=== PATIENT | male | born 1960 | race Caucasian/White ===

== ENCOUNTER 2020-04-08 16:02 | Inpatient (IN) ==
[2020-04-08] MEDS ORDERED: Ondansetron 4 MG/2 ML VIAL IVP PRN (20:30)
[2020-04-08] MEDS ORDERED: Naloxone 0.4 MG/ML INJ IVP PRN (20:30)
[2020-04-08] MEDS ORDERED: Acetaminophen 325 MG TABLET PO PRN (20:57)
[2020-04-08] MEDS: ALPRAZolam 0.5 MG TABLET PO PRN (21:48)
[2020-04-08] MEDS: Nicotine 21 MG PATCH.TD24 TD SCH (21:48)
[2020-04-08] MEDS: Budesonide/Formoterol 160/4.5 1 PUFF INH IH SCH (22:42)
[2020-04-09] MEDS ORDERED: hydrOXYzine pamoate 25 MG CAPSULE PO PRN (03:24)
[2020-04-09 04:12] LABS: Basophils % 0.2 %; Eosinophils % 0.2 %; Hematocrit 43.4 % (37.5-50.1); Hemoglobin 13.9 g/dL (12.9-16.9); Immature Granulocytes % 0.6 % (0-4); Lymphocytes # 4.3 K/mcL (0.6-4.6); Lymphocytes % 22.2 %; Mean Corpuscular Volume 93.7 fL (83.0-100.0); Mean Platelet Volume 10.7 fL (9.4-12.4); Monocytes # 1.4 K/mcL (0.0-1.3); Monocytes % 7.4 %; Platelet Count 283 K/mcL (140-400); Red Blood Count 4.63 M/mcL (4.19-5.50); Red Cell Distribution Width 13.8 % (11.5-14.5); Segmented Neutrophils % 69.4 %; White Blood Count 19.4 K/mcL (4.3-11.1)
[2020-04-09 04:15] LABS: Neutrophils # 13.5 K/mcL (1.6-8.9)
[2020-04-09 04:18] LABS: INR 1.1; Prothrombin Time 12.7 Seconds (9.4-12.1)
[2020-04-09 04:28] LABS: BUN/Creatinine Ratio 29 (6-26); Blood Urea Nitrogen 37 mg/dL (6-20); Calcium 8.7 mg/dL (8.6-10.3); Carbon Dioxide 27 mEq/L (23-29); Chloride 102 mEq/L (98-107); Glucose 99 mg/dL (70-105); Magnesium 1.9 mg/dL (1.6-2.6); Osmolality,Calculated 293 (280-300); Potassium 4.1 mEq/L (3.5-5.1); Sodium 137 mEq/L (136-145); eGFR For African Americans > 60 (> 60); eGFR For Non-African Americans 59 (> 60)
[2020-04-09 04:36] LABS: Reactive Lymphocytes Present (Not Present)
[2020-04-09 04:37] LABS: Platelet Estimate Normal (Normal)
[2020-04-09] MEDS: *HR* Enoxaparin 40 MG/0.4 ML SYRINGE SQ SCH (04:38)
[2020-04-09 05:10] LABS: Creatinine,Urine 90 mg/dL
[2020-04-09] MEDS: Budesonide/Formoterol 160/4.5 1 PUFF INH IH SCH ×2 (07:41→19:44)
[2020-04-09] MEDS: predniSONE 20 MG TABLET PO SCH (08:28)
[2020-04-09] MEDS: Aspirin Enteric Coated 81 MG Tablet PO SCH (08:28)
[2020-04-09] MEDS: Venlafaxine XR (24 HR) 37.5 MG CAP.ER.24H PO SCH (08:28)
[2020-04-09] MEDS: lisinopriL 20 MG TABLET PO SCH (08:28)
[2020-04-09] MEDS: Nitroglycerin 0.4 MG TAB.SUBL SL PRN ×2 (12:10→12:47)
[2020-04-09] MEDS: Furosemide 40 MG/4 ML VIAL IVP SCH ×2 (12:11→17:39)
[2020-04-09] MEDS: Nicotine 21 MG PATCH.TD24 TD SCH (20:37)
[2020-04-10] MEDS: ALPRAZolam 0.5 MG TABLET PO PRN ×2 (00:24→12:24)
[2020-04-10 02:10] LABS: Hematocrit 46.7 % (37.5-50.1); Hemoglobin 15.3 g/dL (12.9-16.9); Mean Corpuscular HGB Conc 32.8 g/dL (31.6-35.5); Mean Corpuscular Hemoglobin 29.8 pg (28.0-33.3); Mean Corpuscular Volume 90.9 fL (83.0-100.0); Mean Platelet Volume 11.1 fL (9.4-12.4); Platelet Count 309 K/mcL (140-400); Red Blood Count 5.14 M/mcL (4.19-5.50); Red Cell Distribution Width 13.2 % (11.5-14.5); White Blood Count 15.1 K/mcL (4.3-11.1)
[2020-04-10 02:30] LABS: BUN/Creatinine Ratio 33 (6-26); Blood Urea Nitrogen 39 mg/dL (6-20); Carbon Dioxide 32 mEq/L (23-29); Chloride 97 mEq/L (98-107); Glucose 127 mg/dL (70-105); Magnesium 1.8 mg/dL (1.6-2.6); Osmolality,Calculated 297 (280-300); Potassium 3.7 mEq/L (3.5-5.1); Sodium 138 mEq/L (136-145); eGFR For African Americans > 60 (> 60); eGFR For Non-African Americans > 60 (> 60)
[2020-04-10] MEDS: *HR* Enoxaparin 40 MG/0.4 ML SYRINGE SQ SCH (05:26)
[2020-04-10] MEDS: Budesonide/Formoterol 160/4.5 1 PUFF INH IH SCH ×2 (07:46→20:38)
[2020-04-10] MEDS ORDERED: Metoprolol XL (24 HR) Succ 50 MG TAB.ER.24H PO SCH (09:00)
[2020-04-10] MEDS: lisinopriL 20 MG TABLET PO SCH (09:45)
[2020-04-10] MEDS: Furosemide 40 MG/4 ML VIAL IVP SCH ×2 (09:45→17:44)
[2020-04-10] MEDS: Aspirin Enteric Coated 81 MG Tablet PO SCH (09:45)
[2020-04-10] MEDS: Venlafaxine XR (24 HR) 37.5 MG CAP.ER.24H PO SCH (09:45)
[2020-04-10] MEDS: predniSONE 20 MG TABLET PO SCH (09:45)
[2020-04-10] MEDS: carvediloL 6.25 MG TABLET PO SCH ×2 (09:48→17:43)
[2020-04-10] MEDS: Nitroglycerin 0.4 MG TAB.SUBL SL PRN (09:49)
[2020-04-10] MEDS: Isosorbide MONOnitrate (24 HR) 60 MG TAB.ER.24H PO SCH (12:25)
[2020-04-10] MEDS: Nicotine 21 MG PATCH.TD24 TD SCH (21:37)
[2020-04-11] MEDS: ALPRAZolam 0.5 MG TABLET PO PRN (00:24)
[2020-04-11] MEDS: *HR* Enoxaparin 40 MG/0.4 ML SYRINGE SQ SCH (06:06)
[2020-04-11 06:17] LABS: Hematocrit 48.1 % (37.5-50.1); Hemoglobin 16.2 g/dL (12.9-16.9); Mean Corpuscular HGB Conc 33.7 g/dL (31.6-35.5); Mean Corpuscular Hemoglobin 30.2 pg (28.0-33.3); Mean Corpuscular Volume 89.6 fL (83.0-100.0); Mean Platelet Volume 10.4 fL (9.4-12.4); Platelet Count 311 K/mcL (140-400); Red Blood Count 5.37 M/mcL (4.19-5.50); White Blood Count 17.3 K/mcL (4.3-11.1)
[2020-04-11 06:48] LABS: BUN/Creatinine Ratio 32 (6-26); Blood Urea Nitrogen 39 mg/dL (6-20); Calcium 9.1 mg/dL (8.6-10.3); Carbon Dioxide 30 mEq/L (23-29); Chloride 97 mEq/L (98-107); Glucose 130 mg/dL (70-105); Osmolality,Calculated 293 (280-300); Potassium 3.5 mEq/L (3.5-5.1); Sodium 136 mEq/L (136-145); eGFR For African Americans > 60 (> 60); eGFR For Non-African Americans > 60 (> 60)
[2020-04-11 07:10] VITALS: BP 156/95
[2020-04-11] MEDS: Budesonide/Formoterol 160/4.5 1 PUFF INH IH SCH (07:15)
[2020-04-11] MEDS: Aspirin Enteric Coated 81 MG Tablet PO SCH (08:14)
[2020-04-11] MEDS: carvediloL 6.25 MG TABLET PO SCH (08:14)
[2020-04-11] MEDS: Isosorbide MONOnitrate (24 HR) 60 MG TAB.ER.24H PO SCH (08:14)
[2020-04-11] MEDS: predniSONE 20 MG TABLET PO SCH (08:14)
[2020-04-11] MEDS: lisinopriL 20 MG TABLET PO SCH (08:15)
[2020-04-11] MEDS: Venlafaxine XR (24 HR) 37.5 MG CAP.ER.24H PO SCH (08:22)
== END 2020-04-11 10:25 | disposition home or self-care (01) | DRG 190 ==
LOC: 2NNU → SUATTDRO 04-09 18:40 → 2ANU 04-10 11:30
PROVIDERS: ADMIT Internal Medicine; ATTEND Internal Medicine

== ENCOUNTER 2020-12-04 20:10 | Inpatient (IN) ==
[2020-12-04] MEDS ORDERED: Naloxone 0.4 MG/ML INJ IVP PRN (23:14)
[2020-12-04] MEDS ORDERED: Acetaminophen 325 MG TABLET PO PRN (23:14)
[2020-12-04] MEDS ORDERED: Ondansetron 4 MG/2 ML VIAL IVP PRN (23:14)
[2020-12-05] MEDS ORDERED: Perflutren Lipid Microsphere 1.3 ML in 0.9 % Sodium Chloride 8.7 ML IVP PRN (00:54)
[2020-12-05] MEDS ORDERED: Ipratropium/Albuterol Neb 3 ML IH PRN (00:56)
[2020-12-05] MEDS: Nicotine 14 MG PATCH.TD24 TD SCH (01:35)
[2020-12-05] MEDS: Azithromycin 500 MG in 0.9 % Sodium Chloride 250 ML IVPB SCH (01:35)
[2020-12-05 02:37] LABS: Basophils % 0.4 %; Eosinophils # 0.2 K/mcL (0.0-0.6); Hematocrit 39.7 % (37.5-50.1); Immature Granulocytes % 0.1 % (0-4); Lymphocytes # 1.7 K/mcL (0.6-4.6); Lymphocytes % 20.4 %; Mean Corpuscular HGB Conc 32.7 g/dL (31.6-35.5); Mean Corpuscular Hemoglobin 29.6 pg (28.0-33.3); Mean Corpuscular Volume 90.4 fL (83.0-100.0); Mean Platelet Volume 10.2 fL (9.4-12.4); Monocytes # 0.8 K/mcL (0.0-1.3); Neutrophils # 5.6 K/mcL (1.6-8.9); Platelet Count 314 K/mcL (140-400); Red Blood Count 4.39 M/mcL (4.19-5.50); Red Cell Distribution Width 13.3 % (11.5-14.5); Segmented Neutrophils % 67.1 %; White Blood Count 8.3 K/mcL (4.3-11.1)
[2020-12-05 02:44] LABS: INR 1.2; Prothrombin Time 13.6 Seconds (9.4-12.1)
[2020-12-05 02:56] LABS: BUN/Creatinine Ratio 16 (6-26); Blood Urea Nitrogen 18 mg/dL (6-20); Calcium 8.1 mg/dL (8.6-10.3); Carbon Dioxide 28 mEq/L (23-29); Chloride 104 mEq/L (98-107); Chol/HDL Ratio 3.5 (0-4.9); Cholesterol 125 mg/dL (< 200); Glucose 111 mg/dL (70-105); HDL Cholesterol 36 mg/dL (40-59); LDL Cholesterol,Calculated 67 mg/dL (< 100); Magnesium 1.7 mg/dL (1.6-2.6); Osmolality,Calculated 285 (280-300); Potassium 3.8 mEq/L (3.5-5.1); Sodium 136 mEq/L (136-145); Triglycerides 111 mg/dL (< 150); eGFR For African Americans > 60 (> 60); eGFR For Non-African Americans > 60 (> 60)
[2020-12-05 03:13] LABS: Large Platelets Present (Not Present); Platelet Estimate Normal (Normal); Reactive Lymphocytes Present (Not Present)
[2020-12-05 04:50] LABS: Adenovirus Not Detected (Not Detect); Bordetella Pertussis Not Detected (Not Detect); Chlamydophila pneumoniae Not Detected (Not Detect); Coronavirus 229E Not Detected (Not Detect); Coronavirus HKU1 Not Detected (Not Detect); Coronavirus NL63 Not Detected (Not Detect); Coronavirus OC43 Not Detected (Not Detect); Human Metapneumovirus Not Detected (Not Detect); Human Rhinovirus/Enterovirus DETECTED (Not Detect); Influenza A Subtype 2009 H1 Not Detected (Not Detect); Influenza B Not Detected (Not Detect); Mycoplasma pneumoniae Not Detected (Not Detect); Parainfluenza Virus 1 Not Detected (Not Detect); Parainfluenza Virus 2 Not Detected (Not Detect); Parainfluenza Virus 3 Not Detected (Not Detect); Parainfluenza Virus 4 DETECTED (Not Detect); Respiratory Syncytial Virus Not Detected (Not Detect)
[2020-12-05 04:52] LABS: SARS-CoV-2 DETECTED (Not Detect)
[2020-12-05] MEDS ORDERED: MethylPREDNISolone 40 MG/ML VIAL IVP SCH (06:00)
[2020-12-05] MEDS: Furosemide 20 MG/2 ML VIAL IVP SCH ×2 (08:28→20:15)
[2020-12-05] MEDS ORDERED: *HR* Enoxaparin 40 MG/0.4 ML SYRINGE SQ SCH (09:00)
[2020-12-05] MEDS: Ketorolac 30 MG/ML VIAL IVP PRN ×2 (09:15→15:30)
[2020-12-05 10:09] LABS: Bacteria,Urine Few per hpf (None-Few); Bilirubin,Urine Negative (Negative); Blood,Urine Negative (Negative); Clarity,Urine Clear (Clear); Color,Urine Light-Yellow (Yellow); Glucose,Urine (UA) 150 mg/dL (Normal); Ketones,Urine Negative (Negative); Leukocyte Esterase,Urine Negative (Negative); Mucus,Urine Few per lpf (None-Few); Nitrite,Urine Negative (Negative); Protein,Urine Trace mg/dL (Neg-Trace); RBC,Urine 0-3 per hpf (0-3); Specific Gravity,Urine 1.015 (1.010-1.025); Urobilinogen,Urine Normal (Normal); WBC,Urine 0-3 per hpf (0-3)
[2020-12-05 10:22] LABS: Amphetamine Screen,Urine Positive ng/mL (Cutoff=1000); Barbiturate Screen,Urine Negative ng/mL (Cutoff=200); Benzodiazepines Screen,Urine Negative ng/mL (Cutoff=200); Cannabinoid Screen,Urine Positive ng/mL (Cutoff = 50); Cocaine Screen,Urine Negative ng/mL (Cutoff= 300); Opiate Screen,Urine Negative ng/mL (Cutoff=300); Phencyclidine Screen,Urine Negative ng/mL (Cutoff=25)
[2020-12-05] MEDS: ALPRAZolam 0.5 MG TABLET PO PRN ×2 (11:40→20:19)
[2020-12-05] MEDS ORDERED: Remdesivir 200 MG in 0.9 % Sodium Chloride 100 ML IVPB ONE (13:00)
[2020-12-05] MEDS: Aspirin 81 MG TAB.CHEW PO SCH (13:26)
[2020-12-05] MEDS: *HR* Enoxaparin 40 MG/0.4 ML SYRINGE SQ SCH (16:52)
[2020-12-05] MEDS: *HR* OxyCODONE/APAP 5/325 TABLET PO PRN (17:29)
[2020-12-05] MEDS: Ipratropium 1 PUFF INHALER IH PRN ×2 (17:55→19:58)
[2020-12-05] MEDS: Budesonide/Formoterol 80/4.5 1 PUFF INH IH SCH (19:58)
[2020-12-06] MEDS: Azithromycin 500 MG in 0.9 % Sodium Chloride 250 ML IVPB SCH (00:18)
[2020-12-06] MEDS: Nicotine 14 MG PATCH.TD24 TD SCH ×2 (00:18→23:43)
[2020-12-06 01:35] LABS: Hematocrit 44.2 % (37.5-50.1); Hemoglobin 14.1 g/dL (12.9-16.9); Mean Corpuscular HGB Conc 31.9 g/dL (31.6-35.5); Mean Corpuscular Hemoglobin 28.3 pg (28.0-33.3); Mean Corpuscular Volume 88.8 fL (83.0-100.0); Mean Platelet Volume 10.6 fL (9.4-12.4); Platelet Count 333 K/mcL (140-400); Red Blood Count 4.98 M/mcL (4.19-5.50); Red Cell Distribution Width 13.2 % (11.5-14.5)
[2020-12-06 01:36] LABS: White Blood Count 14.3 K/mcL (4.3-11.1)
[2020-12-06] MEDS: *HR* OxyCODONE/APAP 5/325 TABLET PO PRN ×2 (01:44→09:36)
[2020-12-06 01:57] LABS: Albumin 3.5 g/dL (3.5-5.7); Albumin/Globulin Ratio 0.9 (1.1-2.2); Bilirubin,Direct 0.1 mg/dL (0.0-0.2); Bilirubin,Indirect 0.1 mg/dL (0.0-1.0); Bilirubin,Total 0.2 mg/dL (0.3-1.0); Globulin 3.9 g/dL (2.4-3.5); Total Protein 7.4 g/dL (6.4-8.9)
[2020-12-06 01:59] LABS: BUN/Creatinine Ratio 21 (6-26); Blood Urea Nitrogen 26 mg/dL (6-20); Calcium 8.8 mg/dL (8.6-10.3); Carbon Dioxide 25 mEq/L (23-29); Chloride 102 mEq/L (98-107); Glucose 113 mg/dL (70-105); Lactate Dehydrogenase 178 Units/L (140-271); Magnesium 1.7 mg/dL (1.6-2.6); Osmolality,Calculated 286 (280-300); Potassium 4.2 mEq/L (3.5-5.1); Sodium 135 mEq/L (136-145); eGFR For African Americans > 60 (> 60); eGFR For Non-African Americans > 60 (> 60)
[2020-12-06 02:13] LABS: Ferritin 104 ng/mL (20-250)
[2020-12-06] MEDS: *HR* Enoxaparin 40 MG/0.4 ML SYRINGE SQ SCH (05:27)
[2020-12-06] MEDS: ALPRAZolam 0.5 MG TABLET PO PRN ×3 (05:33→19:52)
[2020-12-06] MEDS: Ipratropium 1 PUFF INHALER IH PRN ×2 (08:03→19:48)
[2020-12-06] MEDS: Budesonide/Formoterol 80/4.5 1 PUFF INH IH SCH ×2 (08:03→19:47)
[2020-12-06] MEDS: Furosemide 20 MG/2 ML VIAL IVP SCH (09:35)
[2020-12-06] MEDS: Isosorbide MONOnitrate (24 HR) 30 MG TAB.ER.24H PO SCH (09:36)
[2020-12-06] MEDS: Aspirin 81 MG TAB.CHEW PO SCH (09:36)
[2020-12-06] MEDS: Metoprolol XL (24 HR) Succ 25 MG TAB.ER.24H PO SCH (09:37)
[2020-12-06] MEDS: Remdesivir 100 MG in 0.9 % Sodium Chloride 100 ML IVPB SCH (12:04)
[2020-12-06] MEDS: *HR* OxyCODONE Immed Rel 5 MG TABLET PO PRN ×2 (15:28→23:43)
[2020-12-07 01:39] LABS: Hematocrit 44.9 % (37.5-50.1); Hemoglobin 14.3 g/dL (12.9-16.9); Mean Corpuscular HGB Conc 31.8 g/dL (31.6-35.5); Mean Corpuscular Hemoglobin 28.6 pg (28.0-33.3); Mean Corpuscular Volume 89.8 fL (83.0-100.0); Platelet Count 332 K/mcL (140-400); Red Cell Distribution Width 13.5 % (11.5-14.5)
[2020-12-07 01:40] LABS: White Blood Count 28.6 K/mcL (4.3-11.1)
[2020-12-07 01:59] LABS: Albumin 3.6 g/dL (3.5-5.7); Albumin/Globulin Ratio 0.9 (1.1-2.2); Bilirubin,Indirect 0.4 mg/dL (0.0-1.0); Bilirubin,Total 0.4 mg/dL (0.3-1.0); Total Protein 7.6 g/dL (6.4-8.9)
[2020-12-07 02:07] LABS: BUN/Creatinine Ratio 23 (6-26); Blood Urea Nitrogen 27 mg/dL (6-20); Carbon Dioxide 30 mEq/L (23-29); Chloride 97 mEq/L (98-107); Glucose 98 mg/dL (70-105); Osmolality,Calculated 285 (280-300); Potassium 4.3 mEq/L (3.5-5.1); Sodium 135 mEq/L (136-145); eGFR For African Americans > 60 (> 60); eGFR For Non-African Americans > 60 (> 60)
[2020-12-07] MEDS: *HR* Enoxaparin 40 MG/0.4 ML SYRINGE SQ SCH (05:45)
[2020-12-07] MEDS: ALPRAZolam 0.5 MG TABLET PO PRN ×3 (05:45→19:47)
[2020-12-07] MEDS: Budesonide/Formoterol 80/4.5 1 PUFF INH IH SCH ×2 (08:25→19:51)
[2020-12-07] MEDS: Ipratropium 1 PUFF INHALER IH PRN ×2 (08:25→19:51)
[2020-12-07] MEDS: Metoprolol XL (24 HR) Succ 25 MG TAB.ER.24H PO SCH (09:49)
[2020-12-07] MEDS: *HR* OxyCODONE Immed Rel 5 MG TABLET PO PRN ×2 (09:50→17:42)
[2020-12-07] MEDS: Furosemide 20 MG/2 ML VIAL IVP SCH (09:50)
[2020-12-07] MEDS: Aspirin 81 MG TAB.CHEW PO SCH (09:50)
[2020-12-07] MEDS: dexAMETHasone 4 MG TABLET PO SCH (09:50)
[2020-12-07] MEDS: Isosorbide MONOnitrate (24 HR) 30 MG TAB.ER.24H PO SCH (09:50)
[2020-12-07] MEDS: Remdesivir 100 MG in 0.9 % Sodium Chloride 100 ML IVPB SCH (11:46)
[2020-12-07] MEDS: Nicotine 14 MG PATCH.TD24 TD SCH (23:10)
[2020-12-08 02:14] LABS: Red Cell Distribution Width 13.4 % (11.5-14.5)
[2020-12-08 02:15] LABS: Hematocrit 41.2 % (37.5-50.1); Hemoglobin 13.3 g/dL (12.9-16.9); Mean Corpuscular HGB Conc 32.3 g/dL (31.6-35.5); Mean Corpuscular Hemoglobin 28.4 pg (28.0-33.3); Mean Platelet Volume 11.1 fL (9.4-12.4); Platelet Count 334 K/mcL (140-400); Red Blood Count 4.68 M/mcL (4.19-5.50); White Blood Count 25.3 K/mcL (4.3-11.1)
[2020-12-08 02:32] LABS: BUN/Creatinine Ratio 30 (6-26); Blood Urea Nitrogen 28 mg/dL (6-20); Calcium 8.5 mg/dL (8.6-10.3); Carbon Dioxide 27 mEq/L (23-29); Chloride 100 mEq/L (98-107); Glucose 146 mg/dL (70-105); Osmolality,Calculated 288 (280-300); Potassium 3.9 mEq/L (3.5-5.1); Sodium 135 mEq/L (136-145); eGFR For African Americans > 60 (> 60); eGFR For Non-African Americans > 60 (> 60)
[2020-12-08 02:33] LABS: Albumin 3.2 g/dL (3.5-5.7); Albumin/Globulin Ratio 0.9 (1.1-2.2); Bilirubin,Direct 0.1 mg/dL (0.0-0.2); Bilirubin,Indirect 0.2 mg/dL (0.0-1.0); Bilirubin,Total 0.3 mg/dL (0.3-1.0); Globulin 3.5 g/dL (2.4-3.5); Total Protein 6.7 g/dL (6.4-8.9)
[2020-12-08] MEDS: *HR* Enoxaparin 40 MG/0.4 ML SYRINGE SQ SCH (05:23)
[2020-12-08] MEDS: Furosemide 20 MG/2 ML VIAL IVP SCH (07:55)
[2020-12-08] MEDS: Metoprolol XL (24 HR) Succ 25 MG TAB.ER.24H PO SCH (07:55)
[2020-12-08] MEDS: dexAMETHasone 4 MG TABLET PO SCH (07:55)
[2020-12-08] MEDS: Isosorbide MONOnitrate (24 HR) 30 MG TAB.ER.24H PO SCH (07:55)
[2020-12-08] MEDS: Aspirin 81 MG TAB.CHEW PO SCH (07:56)
[2020-12-08] MEDS: ALPRAZolam 0.5 MG TABLET PO PRN ×2 (08:03→16:13)
[2020-12-08] MEDS: *HR* OxyCODONE Immed Rel 5 MG TABLET PO PRN ×2 (08:04→16:13)
[2020-12-08] MEDS: Ipratropium 1 PUFF INHALER IH PRN ×2 (10:11→20:05)
[2020-12-08] MEDS: Budesonide/Formoterol 80/4.5 1 PUFF INH IH SCH ×2 (10:11→20:05)
[2020-12-09] MEDS: *HR* OxyCODONE Immed Rel 5 MG TABLET PO PRN ×2 (00:07→09:15)
[2020-12-09] MEDS: ALPRAZolam 0.5 MG TABLET PO PRN ×2 (00:07→09:15)
[2020-12-09 01:55] LABS: Hemoglobin 13.2 g/dL (12.9-16.9)
[2020-12-09 01:57] LABS: Hematocrit 40.5 % (37.5-50.1); Mean Corpuscular HGB Conc 32.6 g/dL (31.6-35.5); Mean Corpuscular Hemoglobin 28.9 pg (28.0-33.3); Mean Corpuscular Volume 88.8 fL (83.0-100.0); Mean Platelet Volume 10.8 fL (9.4-12.4); Platelet Count 383 K/mcL (140-400); Red Blood Count 4.56 M/mcL (4.19-5.50); Red Cell Distribution Width 13.3 % (11.5-14.5)
[2020-12-09 02:00] LABS: Alanine Aminotransferase 49 Units/L (7-52); Albumin 3.1 g/dL (3.5-5.7); Albumin/Globulin Ratio 0.8 (1.1-2.2); Alkaline Phosphatase 123 Units/L (34-104); Aspartate Amino Transferase 27 Units/L (13-39); BUN/Creatinine Ratio 28 (6-26); Bilirubin,Direct 0.1 mg/dL (0.0-0.2); Bilirubin,Indirect 0.2 mg/dL (0.0-1.0); Bilirubin,Total 0.3 mg/dL (0.3-1.0); Blood Urea Nitrogen 26 mg/dL (6-20); Calcium 8.5 mg/dL (8.6-10.3); Carbon Dioxide 27 mEq/L (23-29); Chloride 100 mEq/L (98-107); Globulin 3.8 g/dL (2.4-3.5); Glucose 117 mg/dL (70-105); Osmolality,Calculated 286 (280-300); Potassium 3.8 mEq/L (3.5-5.1); Sodium 135 mEq/L (136-145); Total Protein 6.9 g/dL (6.4-8.9); eGFR For African Americans > 60 (> 60); eGFR For Non-African Americans > 60 (> 60)
[2020-12-09] MEDS: Nicotine 14 MG PATCH.TD24 TD SCH (02:54)
[2020-12-09 03:45] VITALS: BP 164/99; PULSE 87; TEMP 98.2; O2SAT 95
[2020-12-09] MEDS: *HR* Enoxaparin 40 MG/0.4 ML SYRINGE SQ SCH (05:47)
[2020-12-09] MEDS: Budesonide/Formoterol 80/4.5 1 PUFF INH IH SCH (07:59)
[2020-12-09] MEDS ORDERED: carvediloL 6.25 MG TABLET PO SCH (08:00)
[2020-12-09] MEDS: Ipratropium 1 PUFF INHALER IH PRN (08:02)
[2020-12-09] MEDS: Isosorbide MONOnitrate (24 HR) 30 MG TAB.ER.24H PO SCH (09:15)
[2020-12-09] MEDS: Aspirin 81 MG TAB.CHEW PO SCH (09:15)
[2020-12-09] MEDS: Furosemide 20 MG/2 ML VIAL IVP SCH (09:15)
== END 2020-12-09 17:51 | disposition home or self-care (01) | DRG 137 ==
LOC: 2ANU → SUATTDRO 22:33 → 2ANU 12-05 04:54
PROVIDERS: ADMIT Internal Medicine; ATTEND Internal Medicine